=== PATIENT | female | born 1950 | race Caucasian/White ===

== ENCOUNTER 2019-02-16 07:38 | Outpatient (CLI) | payer MEDICARE ==
[2019-02-16 10:12] LABS: BASOPHILS % (AUTO) 0.4 %; EOSINOPHILS # (AUTO) 0.1 10^3/uL (0.0-0.7); EOSINOPHILS % (AUTO) 1.6 %; HGB - HEMOGLOBIN 15.6 g/dL (12.0-16.0); LYMPHOCYTES % (AUTO) 41.1 %; MEAN CORPUSCULAR HEMOGLOBIN 30.5 pg (27.0-31.0); MEAN CORPUSCULAR HGB CONC 32.6 g/dL (32.0-36.0); MEAN CORPUSCULAR VOLUME 93.4 fL (81.0-99.0); MEAN PLATELET VOLUME 10.4 fL (7.9-10.8); MONOCYTES # (AUTO) 0.3 10^3/uL (0.0-1.0); MONOCYTES % (AUTO) 6.9 %; NEUTROPHILS # (AUTO) 2.5 10^3/uL (1.5-6.6); NEUTROPHILS % (AUTO) 49.8 %; PLT - PLATELET COUNT 231 10^3/uL (130-450); RED BLOOD COUNT 5.12 10^6/uL (4.20-5.40); RED CELL DISTRIBUTION WIDTH 13.2 % (12.0-15.0)
[2019-02-16 10:29] LABS: ALBUMIN 4.4 g/dL (3.2-5.5); ALBUMIN/GLOBULIN RATIO 1.3 (1.0-2.2); ALKALINE PHOSPHATASE 50 IU/L (42-121); ALT ALANINE AMINOTRANSFERASE 32 IU/L (10-60); AST ASPARTATE AMINOTRANSFERASE 24 IU/L (10-42); BILIRUBIN,TOTAL 0.9 mg/dL (0.2-1.0); BUN - BLOOD UREA NITROGEN 19 mg/dL (6-20); CALCIUM 9.2 mg/dL (8.5-10.3); CARBON DIOXIDE - CO2 26 mmol/L (21-32); CHLORIDE 105 mmol/L (101-111); CHOL/HDL RATIO 4.8 (<4.4); CHOLESTEROL 301 mg/dL; CREATININE 0.9 mg/dL (0.4-1.0); GFR - MDRD 62 (>89); GLUCOSE 104 mg/dL (70-100); HDL CHOLESTEROL 63 mg/dL; LDL CHOLESTEROL,CALCULATED 219 mg/dL; LDL/HDL RATIO 3.5 (<4.4); SODIUM 140 mmol/L (135-145); TOTAL PROTEIN 7.8 g/dL (6.7-8.2); VLDL CHOLESTEROL 19 mg/dL
== END 2019-02-16 07:39 | disposition home or self-care (01) ==
LOC: LAB.S 07:38
PROVIDERS: ATTEND Registered Nurse
DX: R07.9 Chest pain, unspecified (principal)
CPT/HCPCS: 36415; 80053; 80061; 83721; 84443; 85025

== ENCOUNTER 2020-08-03 15:47 | Outpatient (CLI) | payer MEDICARE | END 2020-08-03 15:48 | disposition short-term general hospital (02) | LOC: EMS 15:47 | DX: I48.91 Unspecified atrial fibrillation (principal) | CPT/HCPCS: A0425; A0427 ==

== ENCOUNTER 2020-09-11 19:39 | Outpatient (CLI) | payer MEDICARE | END 2020-09-11 19:40 | disposition home or self-care (01) | LOC: COV 19:39 | PROVIDERS: ATTEND Physician Assistant Medical | DX: Z01.812 Encounter for preprocedural laboratory examination (principal); Z20.822 Contact with and (suspected) exposure to COVID-19 ==

== ENCOUNTER 2020-12-19 14:16 | Outpatient (CLI) | payer MEDICARE | END 2020-12-19 14:17 | disposition critical access hospital (66) | LOC: EMS 14:16 | DX: Z04.3 Encounter for examination and observation following other accident (principal); M25.511 Pain in right shoulder | CPT/HCPCS: A0425; A0427 ==

== ENCOUNTER 2020-12-19 14:54 | Emergency (ER) | payer MEDICARE ==
[2020-12-19] MEDS ORDERED: ONDANSETRON 4 MG/2 ML VIAL IVP STA (15:32)
[2020-12-19] MEDS ORDERED: diazePAM INJ 5 MG/ML SYRINGE IVP STA (15:33)
--- NOTE | 2020-12-19 15:34 | ED Physician Documentation ---
History of Present Illness - Stated complaint Stated Complaint: GLF - Chief complaint Chief Complaint: Trauma Ext - History obtained from History obtained from: Patient - Additonal information Additional information: Patient presented via EMS after falling through a rotten part of her deck. She was working on a deck when part of it collapsed and she fell through landing onto her right shoulder. She denies hitting her head, no loss of consciousness, no head, neck or back injuries. She is reporting primarily right shoulder pain but is also Turned about possible right leg abrasions as this part of the leg fell through the deck. She denies any other pain in the extremities, no pain in the right hand, right forearm or other extremities. She is on Eliquis as well as diltiazem for A. fib. Review of Systems Constitutional: reports: Reviewed and negative Eyes: reports: Reviewed and negative Ears: reports: Reviewed and negative Nose: reports: Reviewed and negative Cardiac: reports: Reviewed and negative Respiratory: reports: Reviewed and negative GI: reports: Reviewed and negative : reports: Reviewed and negative Skin: reports: Abrasion (s), Other (Fusion) Musculoskeletal: reports: Extremity pain, Joint pain Neurologic: reports: Reviewed and negative Psychiatric: reports: Reviewed and negative Endocrine: reports: Reviewed and negative PD PAST MEDICAL HISTORY - Past Medical History Past Medical History: Yes Cardiovascular: Atrial fibrillation - Present Medications Home Medications: Ambulatory Orders Medication Instructions Recorded Confirmed diazePAM [Valium] 5 mg PO TID PRN #15 tablet 12/19/20 oxyCODONE [Roxicodone] 5 mg PO ONCE #20 tablet 12/19/20 - Allergies Allergies/Adverse Reactions: Allergies Allergy/AdvReac Type Severity Reaction Status Date / Time No Known Drug Allergies Allergy Verified 12/19/20 15:11 PD ED PE NORMAL - Vitals Vital signs reviewed: Yes - General General: Alert and oriented X 3, Well developed/nourished. No: No acute distress (There is to be in pain) - HEENT HEENT: Atraumatic, Moist mucous membranes, Pharynx benign - Neck Neck: Supple, no meningeal sign, No JVD - Cardiac Cardiac: RRR, No murmur - Respiratory Respiratory: No respiratory distress, Clear bilaterally - Abdomen Abdomen: Normal bowel sounds, Soft - Derm Derm: Normal color, Warm and dry, No rash - Extremities Extremities: Other (Right shoulder is generalized tenderness with palpation, unwilling to move due to pain. Sling and swath across the chest in a position of comfort.) - Neuro Neuro: Alert and oriented X 3, No motor deficit, No sensory deficit, Normal speech Eye Opening: Spontaneous Motor: Obeys Commands Verbal: Oriented GCS Score: 15 - Psych Psych: Normal mood, Normal affect - Free text exam Free text exam: Right knee, upper thigh and upper part of the right calf with contusions, skin intact she has full range of motion of the right knee. No other extremity injuries or tenderness with palpation. There are 2 light abrasions on both her hands on the dorsum with some mild bruising, no longer bleeding. Results - Vitals Vitals: Vital Signs - 24 hr 12/19/20 12/19/20 15:07 17:19 Temperature 36.1 C L Heart Rate 48 L 58 L Respiratory 14 14 Rate Blood Pressure 127/106 H 134/98 H O2 Saturation 99 99 Oxygen O2 Source Room air PD MEDICAL DECISION MAKING - ED course Complexity details: reviewed results, re-evaluated patient, d/w patient ED course: This is a 70-year-old female who sustained a right humeral neck fracture after falling through a rotten area of the [employer]. The fracture is mildly displaced. She received pain medication here as well as a low-dose of Valium due to spasming of the right upper arm. She was placed in a coaptation splint and sling and will follow up with orthopedic surgery (Dr. Roberts) as outpatient. I will discharge her home with oxycodone and routine narcotic instructions and precautions were administered to the patient. Am also going to give her low-dose of as needed Valium and she was advised to avoid taking the simultaneously due to the risk for oversedation. She was primarily having spasms causing her pain so I do think the Valium will be helpful. She is on Eliquis this will not take any ibuprofen. I reviewed supportive measures and return precautions in detail with the patient. Departure - Departure Disposition: 01 Home, Self Care Clinical Impression: Fracture of neck of humerus Qualifiers: Encounter type: initial encounter Fracture type: closed Laterality: right Qualified Code(s): S42.211A - Unspecified displaced fracture of surgical neck of right humerus, initial encounter for closed fracture Condition: Good Instructions: ED Cast Care Fiberglass, ED Fx Upper Ext Follow-Up: Gallito Roberts MD [Provider Admit Priv/Credential] - Prescriptions: oxyCODONE [Roxicodone] 5 mg PO ONCE #20 tablet diazePAM [Valium] 5 mg PO TID PRN #15 tablet PRN Reason: Spasms Comments: You presented after a fall through the deck and sustained a fracture of the humeral neck (the top of the upper arm bone just before the shoulder). We have placed you in a splint which should remain in place until You are seen by the compensation/benefits specialist. Please call tomorrow to schedule a follow-up appointment. I have prescribed pain medication called oxycodone which is a narcotic pain medication should be used carefully. You should not drive or operate heavy machinery on this medication nor should you take any other respiratory suppressants. You may take Tylenol in addition to this medication. Discharge Date/Time: 12/19/20 17:20
--- NOTE | 2020-12-19 15:38 | XRAY Report ---
PROCEDURE: Shoulder 3 View RT INDICATIONS: Trauma TECHNIQUE: 3 views of the shoulder were acquired. COMPARISON: None. FINDINGS: BONES: Displaced fracture of the humeral neck. The humeral head remains seated within the glenoid. The common clavicular joint is maintained. SOFT TISSUES: Edema about the fracture site. IMPRESSION: 1.Displaced fracture of the humeral neck. Reviewed by: Lenin Hagen MD on 12/19/2020 3:37 PM PDT Approved by: Lenin Hagen MD on 12/19/2020 3:37 PM PDT Station ID: [id number]
[2020-12-19] MEDS ORDERED: MORPHINE 2 MG/ML CARPUJECT IVP STA (16:46)
[2020-12-19 17:20] VITALS: BP 134/98
== END 2020-12-19 17:20 | disposition home or self-care (01) ==
LOC: EDUNIT# → SUPCPDRO 14:54 → ED 14:54
DX: S42.211A Unspecified displaced fracture of surgical neck of right humerus, initial encounter for closed fracture (principal); S80.01XA Contusion of right knee, initial encounter; S70.11XA Contusion of right thigh, initial encounter; S80.11XA Contusion of right lower leg, initial encounter; S60.512A Abrasion of left hand, initial encounter; S60.511A Abrasion of right hand, initial encounter; W13.8XXA Fall from, out of or through other building or structure, initial encounter; Y93.89 Activity, other specified; M62.838 Other muscle spasm; I48.91 Unspecified atrial fibrillation; Z79.01 Long term (current) use of anticoagulants
CPT/HCPCS: 96374; 96375; 99284

== ENCOUNTER 2021-01-03 12:25 | Outpatient (CLI) | payer MEDICARE ==
--- NOTE | 2021-01-03 14:01 | XRAY Report ---
PROCEDURE: Shoulder 2 View RT INDICATIONS: 3-PART FRACTURE OF SURGICAL NECK OF RIGHT HUMERUS TECHNIQUE: 2 views of the shoulder were acquired. COMPARISON: X-ray of the right shoulder 3 views, 12/19/2020. FINDINGS: Bones: There is a comminuted fracture of the humeral head and neck with displacement. The alignment is unchanged. No suspicious bony lesions. Visualized ribs appear intact. Soft tissues: No suspicious soft tissue calcifications. IMPRESSION: Comminuted, displaced humeral head and neck fracture with stable alignment. Reviewed by: aTni Drew MD on 01/03/2021 2:00 PM PDT Approved by: Tani Drew MD on 01/03/2021 2:00 PM PDT Station ID: [id number]
== END 2021-01-03 12:26 | disposition home or self-care (01) ==
LOC: DI.S 12:25
PROVIDERS: ATTEND Registered Nurse
DX: S42.211D Unspecified displaced fracture of surgical neck of right humerus, subsequent encounter for fracture with routine healing (principal)

== ENCOUNTER 2022-08-12 11:19 | Outpatient (CLI) | payer MEDICARE ==
[2022-08-12 14:50] LABS: BASOPHILS % (AUTO) 0.2 %; EOSINOPHILS # (AUTO) 0.1 10^3/uL (0.0-0.7); EOSINOPHILS % (AUTO) 1.1 %; HCT - HEMATOCRIT 47.4 % (37.0-47.0); HGB - HEMOGLOBIN 15.6 g/dL (12.0-16.0); LYMPHOCYTES # (AUTO) 2.3 10^3/uL (1.5-3.5); LYMPHOCYTES % (AUTO) 37.5 %; MEAN CORPUSCULAR HEMOGLOBIN 30.5 pg (27.0-31.0); MEAN CORPUSCULAR HGB CONC 32.9 g/dL (32.0-36.0); MEAN CORPUSCULAR VOLUME 92.8 fL (81.0-99.0); MEAN PLATELET VOLUME 10.8 fL (7.9-10.8); MONOCYTES # (AUTO) 0.4 10^3/uL (0.0-1.0); MONOCYTES % (AUTO) 6.6 %; NEUTROPHILS # (AUTO) 3.3 10^3/uL (1.5-6.6); NEUTROPHILS % (AUTO) 54.3 %; PLT - PLATELET COUNT 232 10^3/uL (130-450); RED BLOOD COUNT 5.11 10^6/uL (4.20-5.40); RED CELL DISTRIBUTION WIDTH 13.5 % (12.0-15.0); WHITE BLOOD COUNT 6.1 x10^3/uL (4.8-10.8)
[2022-08-12 15:36] LABS: ALBUMIN 4.1 g/dL (3.2-5.5); ALBUMIN/GLOBULIN RATIO 1.1 (1.0-2.2); ALKALINE PHOSPHATASE 53 IU/L (42-121); ALT ALANINE AMINOTRANSFERASE 47 IU/L (10-60); AST ASPARTATE AMINOTRANSFERASE 33 IU/L (10-42); BILIRUBIN,TOTAL 1.1 mg/dL (0.2-1.0); BUN - BLOOD UREA NITROGEN 19 mg/dL (6-20); CARBON DIOXIDE - CO2 25 mmol/L (21-32); CHLORIDE 108 mmol/L (101-111); CHOL/HDL RATIO 4.7 (<4.4); CHOLESTEROL 276 mg/dL; GFR - MDRD 55 (>89); GLUCOSE 115 mg/dL (70-100); HDL CHOLESTEROL 59 mg/dL; LDL CHOLESTEROL,CALCULATED 187 mg/dL; LDL/HDL RATIO 3.2 (<4.4); POTASSIUM 4.3 mmol/L (3.5-5.0); SODIUM 142 mmol/L (135-145); TOTAL PROTEIN 7.7 g/dL (6.7-8.2); TRIGLYCERIDES 152 mg/dL; VLDL CHOLESTEROL 30 mg/dL
[2022-08-12 15:49] LABS: THYROID STIMULATING HORMONE 1.08 uIU/mL (0.34-5.60)
== END 2022-08-12 11:20 | disposition home or self-care (01) ==
LOC: LAB.S 11:19
PROVIDERS: ATTEND Registered Nurse
DX: Z79.899 Other long term (current) drug therapy (principal); Z13.220 Encounter for screening for lipoid disorders
CPT/HCPCS: 36415; 80053; 80061; 83721; 84443; 85025

== ENCOUNTER 2023-09-11 08:55 | Outpatient (CLI) | payer MEDICARE ==
[2023-09-11 15:44] LABS: BASOPHILS % (AUTO) 0.5 %; EOSINOPHILS # (AUTO) 0.1 10^3/uL (0.0-0.7); HGB - HEMOGLOBIN 16.1 g/dL (12.0-16.0); LYMPHOCYTES # (AUTO) 1.9 10^3/uL (1.5-3.5); LYMPHOCYTES % (AUTO) 30.5 %; MEAN CORPUSCULAR HEMOGLOBIN 30.4 pg (27.0-31.0); MEAN CORPUSCULAR HGB CONC 32.2 g/dL (32.0-36.0); MEAN CORPUSCULAR VOLUME 94.5 fL (81.0-99.0); MEAN PLATELET VOLUME 11.4 fL (7.9-10.8); MONOCYTES # (AUTO) 0.5 10^3/uL (0.0-1.0); MONOCYTES % (AUTO) 7.2 %; NEUTROPHILS # (AUTO) 3.8 10^3/uL (1.5-6.6); NEUTROPHILS % (AUTO) 60.6 %; PLT - PLATELET COUNT 228 10^3/uL (130-450); RED BLOOD COUNT 5.29 10^6/uL (4.20-5.40); RED CELL DISTRIBUTION WIDTH 13.4 % (12.0-15.0); WHITE BLOOD COUNT 6.3 x10^3/uL (4.8-10.8)
[2023-09-11 16:23] LABS: THYROID STIMULATING HORMONE 1.27 uIU/mL (0.34-5.60)
[2023-09-11 16:25] LABS: ALBUMIN 4.2 g/dL (3.2-5.5); ALBUMIN/GLOBULIN RATIO 1.3 (1.0-2.2); ALKALINE PHOSPHATASE 54 IU/L (42-121); ALT ALANINE AMINOTRANSFERASE 46 IU/L (10-60); AST ASPARTATE AMINOTRANSFERASE 30 IU/L (10-42); BILIRUBIN,TOTAL 0.9 mg/dL (0.2-1.0); BUN - BLOOD UREA NITROGEN 19 mg/dL (6-20); CALCIUM 9.7 mg/dL (8.5-10.3); CARBON DIOXIDE - CO2 25 mmol/L (21-32); CHLORIDE 106 mmol/L (101-111); CHOL/HDL RATIO 5.2 (<4.4); CHOLESTEROL 248 mg/dL; CREATININE 0.9 mg/dL (0.6-1.3); GFR - MDRD 62 (>89); GLUCOSE 123 mg/dL (74-104); HDL CHOLESTEROL 48 mg/dL; LDL CHOLESTEROL,CALCULATED 168 mg/dL; LDL/HDL RATIO 3.5 (<4.4); POTASSIUM 4.2 mmol/L (3.5-4.5); SODIUM 138 mmol/L (135-145); TOTAL PROTEIN 7.5 g/dL (6.4-8.9); TRIGLYCERIDES 161 mg/dL; VLDL CHOLESTEROL 32 mg/dL
== END 2023-09-11 08:56 | disposition home or self-care (01) ==
LOC: LAB.S 08:55
PROVIDERS: ATTEND Registered Nurse
DX: Z13.220 Encounter for screening for lipoid disorders (principal); Z79.899 Other long term (current) drug therapy; Z13.29 Encounter for screening for other suspected endocrine disorder
CPT/HCPCS: 36415; 80053; 80061; 83721; 84443; 85025